=== PATIENT | female | born 1990 | race American Indian/Alaskan Native ===

== ENCOUNTER 2018-10-19 09:02 | Outpatient (CLI) | payer BC ==
--- NOTE | 2018-10-19 09:42 | Ultrasound Report ---
RIGHT BREAST ULTRASOUND: 10/19/18 09:02:00 CLINICAL: 28 year-old with a palpable lump in the right axilla. COMPARISON: None. FINDINGS: Ultrasound of the right breast(including all four quadrants and the retroareolar area) was performed and demonstrated no mass, cyst or shadowing within the breast. Normal fibroglandular and fatty structures. Ultrasound of the right axilla demonstrated an irregular skin lesion which correlates with the palpable lump. It measures approximately 12 x 7 x 4 mm and is centered within thickened skin. The patient states that it has been tender and has not drained anything. IMPRESSION: A benign skin lesion of the right axilla. Negative right breast. BI-RADS 2 - - Benign RECOMMENDATION: Treatment of the skin lesion of the right axilla. I instructed her to use a topical [id number] antibiotic if it remains tender. I also instructed her to see her physician if he gets worse or if she sees any drainage.
== END 2018-10-19 09:03 | disposition home or self-care (01) ==
LOC: SPVWC 09:02
PROVIDERS: ATTEND Obstetrics & Gynecology
DX: R22.31 Localized swelling, mass and lump, right upper limb (principal)